=== PATIENT | male | born 1960 | race Caucasian/White ===

== ENCOUNTER 2024-04-01 14:58 | Emergency (ER) | payer OTHER, SELFPAY ==
[2024-04-01 15:01] VITALS: BP 196/99
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
[2024-04-01 17:56] VITALS: BP 158/96
[2024-04-01 17:59] VITALS: BP 158/96
== END 2024-04-01 17:59 | disposition home or self-care (01) ==
LOC: EMR 14:58
PROVIDERS: EMERGENCY PHYSICIAN Emergency Medicine; FAMILY PHYSICIAN Family Medicine
DX: S62.001A Unspecified fracture of navicular [scaphoid] bone of right wrist, initial encounter for closed fracture (principal); S60.211A Contusion of right wrist, initial encounter; R60.0 Localized edema; V43.52XA Car driver injured in collision with other type car in traffic accident, initial encounter; Y92.410 Unspecified street and highway as the place of occurrence of the external cause; R03.0 Elevated blood-pressure reading, without diagnosis of hypertension; M54.2 Cervicalgia; G89.29 Other chronic pain; Z88.0 Allergy status to penicillin
CPT/HCPCS: 99283; 29125; 73110

== ENCOUNTER 2024-04-04 10:31 | Emergency (ER) | payer OTHER, SELFPAY ==
[2024-04-04 10:34] VITALS: BP 166/83
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
== END 2024-04-04 11:22 | disposition home or self-care (01) ==
LOC: EMR 10:31
PROVIDERS: EMERGENCY PHYSICIAN Emergency Medicine; FAMILY PHYSICIAN Family Medicine
DX: S16.1XXA Strain of muscle, fascia and tendon at neck level, initial encounter (principal); V49.60XA Unspecified car occupant injured in collision with unspecified motor vehicles in traffic accident, initial encounter
CPT/HCPCS: 99282

== ENCOUNTER → 2025-06-11 14:59 | Outpatient (REF) | payer OTHER, SELFPAY | LOC: MRI 3T 14:59 | PROVIDERS: ATTENDING PHYSICIAN Specialist; FAMILY PHYSICIAN Family Medicine | DX: R97.20 Elevated prostate specific antigen [PSA] (principal) | CPT/HCPCS: 72197; A9585 ==